=== PATIENT | female | born 1970 | race Caucasian/White ===

== ENCOUNTER → 2021-04-10 | Outpatient (CLI) | payer MEDICARE, OTHER ==
--- NOTE | 2021-04-10 17:36 | KCIC ---
Exam Date: 04/10/2021 3:25 PM MRI LEFT UPPER EXTREMITY JOINT WITHOUT CONTRAST Indication: Reason: LEFT SHOULDER PAIN / Spl. Instructions: / History: Left shoulder pain, chronic s rakesh 2010. Injections, no surgical hx.. TECHNIQUE: Routine multiplanar MR imaging of the shoulder was performed without contrast. FINDINGS: There is a focal partial-thickness articular sided delamination tear involving the mid insertional fi bers of the supraspinatus tendon measuring 7 mm with approximately 7 mm retraction of the torn tendon fibers. Supraspinatus and infraspinatus tendinopathy is noted. No full-thickness rotator cuff tendon tear is identified. The infraspinatus, teres minor and subscap ularis tendons are otherwise intact. Rotator cuff musculature demonstrates normal signal and bulk. Mild degenerative changes are seen at the AC joint. There is an intact type II acromion. No signifi cant fluid is seen in the subacromial/subdeltoid bursa. Long head of the biceps tendon is intact. Labrum demonstrates grossly normal signal and morphology, though lack of intra-articular contrast limits evaluation. Mild degenerative changes are seen at the glenohumeral joint within subchondral degenerative cyst in the posterior superior labrum. Bone marrow demonstrates benign signal on all sequences without acute fracture. IMPRESSION: Partial thickness articular sided delamination tear of the supraspinatus tendon as described. Supraspinatus and infraspinatus tendinopathy is noted. Electronically signed by: Karl Ibrahim MD (04/10/2021 5:33 PM) [id number]
== END ==
LOC: KCIC MRI 15:11
PROVIDERS: ATTEND Orthopaedic Surgery
DX: M75.112 Incomplete rotator cuff tear or rupture of left shoulder, not specified as traumatic (principal); M75.82 Other shoulder lesions, left shoulder; M19.012 Primary osteoarthritis, left shoulder
CPT/HCPCS: 73221

== ENCOUNTER 2021-05-09 08:58 | Day surgery (SDC) | payer MEDICARE, OTHER ==
[~2021-05-09] VITALS: Ht 152.4 cm; Wt 90.0 kg
[~2021-05-09 08:58] MED LIST: ASPI-630 PO; BUDE10.2 IH; CALC-157 PO; CELE100C PO; CETI10TA16 PO; CLINDAMYCIN 900MG PREMIX 50 ML IV PRN; DAPA10TA PO; DEXAMETHASONE SOD PHOS 4 MG/ML VIAL ONE; EPINEPHrine VIAL 30 MG/30 ML VIAL ONE; ESTR1PAT33 TD; EXEN2AUT SQ; FAMOTIDINE 20 MG/2 ML VIAL ONE; FLUT9.9S NS; INSU100V37 SQ; INSULIN LISPRO 100 UNIT/ML 3ML VIAL for OP,RR ONLY. SQ PRN; IV RINGERS,LACTATED 1000ML 1,000 ML IV SCH; LACT1CAP6 PO; LAMO150T3 PO; LEVO137T3 PO; LIDOCAINE 2% PF 5 ML VIAL. ONE; LISI20TA18 PO; METF10007 PO; MIDAZOLAM HCL/PF 2 MG/2 ML VIAL. ONE; MULT-245 PO; NEOSTIGMINE METHYLSULFATE 5 MG/5 ML SYRINGE. ONE; OMEP40CA7 PO; ONDANSETRON PF 4 MG/2 ML VIAL. ONE; PARO30TA3 PO; PRAS25CA PO; PRAV40TA2 PO; PROCHLORPERAZINE 10 MG/2 ML VIAL. IVP PRN; PROG200C10 PO; PROPOFOL 10 MG/ML (20ML) VIAL. IV ONE; ROCURONIUM 50 MG/5 ML VIAL. ONE; ROPIVacaine 0.5% PF 20 ML VIAL. ONE; SOY155CA PO; VITA1CAP PO; fentaNYL PF VIAL 100 MCG/2 ML VIAL IVP PRN; fentaNYL PF VIAL 100 MCG/2 ML VIAL ONE
[2021-05-09] MEDS ORDERED: GLYCOPYRROLATE 1 MG/5 ML VIAL. ONE ×2 (08:59→10:30)
[2021-05-09 09:22] VITALS: BP 111/55
[2021-05-09] MEDS ORDERED: INSULIN LISPRO 100 UNIT/ML 3ML VIAL for OP,RR ONLY. SQ ONE (09:40)
[2021-05-09] MEDS ORDERED: NEOSTIGMINE METHYLSULFATE 5 MG/5 ML SYRINGE. ONE (10:29)
[2021-05-09] MEDS ORDERED: fentaNYL PF VIAL 100 MCG/2 ML VIAL ONE (10:51)
--- NOTE | 2021-05-09 11:10 | PDOC4 ---
OPERATIVE NOTE Date: Date: May 09, 2021 Pre-Op Diagnosis: Impingement AC arthrosis near full-thickness rotator cuff tear left shoulder Post-Op Diagnosis: Same Procedure Performed: Left shoulder arthroscopy with subacromial decompression distal clavicle resection 1.8 cm and mini open rotator cuff repair Surgeon: Freddy Anesthesia Type: General Blood Loss: 30 cc Specimans Obtained: None Findings: See dictation Complications: None RACHEL DIAZ Jr. DO May 09, 2021 11:10
[2021-05-09] MEDS ORDERED: OXYC1TAB15 PO (11:13)
--- NOTE | 2021-05-09 11:16 | DISCH ---
DISCHARGE INSTRUCTIONS Condition on Discharge Condition on Discharge: Stable Activity After Discharge Activity Instructions for Disc: Avoid exertion Driving Instructions after Dis: No driving for 2 weeks Wound Incision Care Wound/Incision Care: Ice to area for comfort, Change dressing Other wound/incision instructi: May change dressings postoperative day #3 Follow-Up Follow up with: 10 to 14 days Treatment/Equipment after DC Adaptive Equipment Issued: Brace/splint (Maintain immobilizer at all times) RACHEL DIAZ Jr. DO May 09, 2021 11:16
[2021-05-09] MEDS ORDERED: oxyCODONE/APAP 5/325 1 TAB TABLET PO ONE (11:30)
--- NOTE | 2021-05-09 11:39 | OP ---
DATE OF SURGERY: 05/09/2021 PREOPERATIVE DIAGNOSES: Impingement, acromioclavicular arthrosis, rotator cuff tear, left shoulder. POSTOPERATIVE DIAGNOSES: Impingement, acromioclavicular arthrosis, rotator cuff tear, left shoulder. PROCEDURES: Left shoulder arthroscopy with subacromial decompression, distal clavicle resection, mini open rotator cuff repair. SURGEON: Steve Hayes Jr, DO [employer]: Mook Luna. ANESTHESIA: General. COMPLICATIONS: None. ESTIMATED BLOOD LOSS: 30 mL DESCRIPTION OF PROCEDURE: The patient was taken to the operative suite, given a general anesthetic. The patient was placed on table in a beach chair position. The left shoulder was then prepped and draped in a sterile fashion. Standard posterior portal was established. The glenohumeral joint was visualized and noted to be intact as far as no significant degenerative changes on the glenoid or the humeral surface. Biceps tendon was completely intact. The bicep anchor as well as the labral tissue was completely attached and intact at this point as well. However, there was significant delamination of the undersurface of the rotator cuff for approximately 5 mm. This was a near full thickness tear from this evaluation site. Nothing within the inferior recess. Scope was then into the subacromial region. A significant amount of bursitis was noted at that point. Therefore, bursectomy was completed. Release of the CA ligament, there was an extremely large anterior osteophyte, which was calcification of the coracoacromial ligament. This was very large in nature. Therefore, a bur was used for the subacromial decompression. There was also lateral spur, which was diminished as well and removed. Then, the anterior portal was reestablished into the AC joint and the undersurface of the AC joint, which had a large spur was removed as well as 1.8 cm of the distal clavicle. After that was done and the bursectomy was noted to be completed, there was noted to be an area of full-thickness tear after debridement of the remaining cuff. The remaining tissue, however, looked good. There was about a 5 mm tear. Therefore, this lateral portal was incorporated into a lateral incision through skin and subcutaneous tissues down to split the deltoid and after this was retracted, 1 suture anchor 5.5 mm was placed along the area for the medial row fixation. This was cut and this was a longitudinal split. Therefore, each limb was placed through one of the anterior and posterior aspects of the tear. This was tied back and then further reapproximated using 2-0 Vicryl distally. Then, this was anchored down for a lateral row fixation with the SwiveLock. This was noted to be sterile very good tissue remaining. Therefore, this was thoroughly irrigated. The deltoid split was reapproximated. Superficial tissues and skin was reapproximated. Sterile dressing was applied as well as an immobilizer. The patient was then taken from the operative bed to the postoperative bed, taken to the PACU in stable condition. BETTY DR: Edgar TID: [id number]
[2021-05-09 12:30] VITALS: BP 103/69
== END 2021-05-09 13:12 | disposition home or self-care (01) ==
LOC: SURG 08:58
PROVIDERS: ATTEND Orthopaedic Surgery
DX: M75.112 Incomplete rotator cuff tear or rupture of left shoulder, not specified as traumatic (principal); M19.012 Primary osteoarthritis, left shoulder; I10 Essential (primary) hypertension; E78.00 Pure hypercholesterolemia, unspecified; J44.9 Chronic obstructive pulmonary disease, unspecified; G47.30 Sleep apnea, unspecified; K21.9 Gastro-esophageal reflux disease without esophagitis; M19.90 Unspecified osteoarthritis, unspecified site; E11.9 Type 2 diabetes mellitus without complications; E03.9 Hypothyroidism, unspecified; Z87.891 Personal history of nicotine dependence; Z79.82 Long term (current) use of aspirin; Z79.84 Long term (current) use of oral hypoglycemic drugs; Z90.710 Acquired absence of both cervix and uterus; Z98.890 Other specified postprocedural states; Z79.899 Other long term (current) drug therapy; Z88.1 Allergy status to other antibiotic agents; Z88.5 Allergy status to narcotic agent; Z88.8 Allergy status to other drugs, medicaments and biological substances
CPT/HCPCS: 23410; 29823; 29824; 82962; A4209; A4565; A4928; A4930; C1713; J0171; J1100; J1815; J2250; J2405; J2704; J2710; J2795; J3010; J3490; A4452